=== PATIENT | female | born 1930 | race Caucasian/White ===

== ENCOUNTER → 2016-07-15 | Outpatient (CLI) | payer BC ==
[~2016-07-15] MED LIST: ASPEC325 PO; AZIT-57 PO; BUTA1CAP17 PO; LDDP5 TD; LISI-725 PO; SERT50TA PO
--- NOTE | 2016-07-15 15:37 | DIAGNOSTIC IMAGING REPORT ---
CHEST 2 VIEWS ROUTINE CLINICAL HISTORY: J18.9 cough. Fever. COMPARISON STUDY: 10/25/2015 FINDINGS: The bones soft tissues and hemidiaphragms are normal. The cardiomediastinal silhouette is normal. The lungs are clear. The pulmonary vasculature is normal. IMPRESSION: Negative chest. Electronically signed by: Kimani Harris M.D. 07/15/2016 3:35 PM
== END | disposition home or self-care (01) ==
LOC: C.RAD1850 15:24
PROVIDERS: ATTEND Nurse Practitioner
DX: J18.9 Pneumonia, unspecified organism (principal)

== ENCOUNTER → 2017-06-22 | Outpatient (CLI) | payer BC ==
--- NOTE | 2017-06-23 07:48 | MAMMOGRAPHY REPORT ---
BILATERAL DIGITAL SCREENING MAMMOGRAM WITH CAD: 06/22/2017 CLINICAL HISTORY: Routine screening. Patient has no complaints. TECHNIQUE: Bilateral CC and MLO views were obtained. Current study was also evaluated with a Compute r Aided Detection (CAD) system. COMPARISON: Comparison is made to exams dated: 06/19/2016 mammogram, 05/30/2015 mammogram, 05/29/2014 mammogram, 05/27/2013 mammogram, 05/26/2012 mammogram, and 05/06/2011 mammogram - [facility]. BREAST COMPOSITION: There are scattered areas of fibroglandular density in both breasts. FINDINGS: There are mild vascular calcifications in the breasts. Stable nodularity in the lateral as pect of each breast. No new suspicious mass, architectural distortion or cluster of microcalcificati ons is seen. IMPRESSION: ACR BI-RADS CATEGORY 1: NEGATIVE There is no mammographic evidence of malignancy. A 1 year screening mammogram is recommended. The pa tient will receive written notification of the results. Approximately 10% of breast cancers are not detected with mammography. A negative mammographic report should not delay biopsy if a clinically suggestive mass is present. Sophia Bennett M.D. ay/:06/22/2017 16:14:40 Clay Modeler: Violet ORNELAS(R)(M), [facility] letter sent: Normal 1/2 BI-RADS Code: ACR BI-RADS Category 1: Negative
== END | disposition home or self-care (01) ==
LOC: C.MAMM 13:35
PROVIDERS: ATTEND Family Medicine
DX: Z12.31 Encounter for screening mammogram for malignant neoplasm of breast (principal)

== ENCOUNTER → 2017-11-18 | Outpatient (CLI) | payer BC ==
--- NOTE | 2017-11-18 19:36 | DIAGNOSTIC IMAGING REPORT ---
RIBS BILATERAL WITH PA CHEST CLINICAL HISTORY: 87 years-old Female presenting with MID BACK PAIN, DYSPNEA, fall, left posterior lateral rib bruising, right-sided rib cage pain on inspiration. TECHNIQUE: Frontal and oblique views of the bilateral ribs as well as PA view of the chest were obtained. COMPARISON: 07/15/2016. FINDINGS: Atherosclerosis and mild tortuosity of the thoracic aorta. Cardiac silhouette normal in size. No focal opacity. No large effusion or pneumothorax. Cholecystectomy clips noted. Mild scoliotic curvature of the thoracic spine. Osteopenia may be present. No displaced rib fracture. IMPRESSION: 1. No displaced rib fracture. 2. No acute cardiopulmonary disease. Electronically signed by: Lyle Morris M.D. 11/18/2017 7:35 PM Dictated Date/Time: 11/18/2017 7:32 PM
== END | disposition home or self-care (01) ==
LOC: C.RAD 18:45
PROVIDERS: ATTEND Family Medicine
DX: M54.9 Dorsalgia, unspecified (principal); R06.00 Dyspnea, unspecified

== ENCOUNTER 2018-03-05 15:26 | Emergency (ER) | payer BC ==
[~2018-03-05] VITALS: Ht 152.4 cm; Wt 64.0 kg
[~2018-03-05 15:26] MED LIST changes: -ASPEC325 PO; -AZIT-57 PO; -BUTA1CAP17 PO; +CYAN500T PO; -LDDP5 TD
[2018-03-05 15:48] VITALS: TEMP 36.7; Ht 152.4 cm; Wt 64.0 kg
[2018-03-05] MEDS ORDERED: FENTANYL CITRATE INJ 50 MCG/1 ML 2 ML VIAL IV STA (16:03)
[2018-03-05] MEDS ORDERED: ACETAMINOPHEN IV 100 ML IV STA (16:03)
--- NOTE | 2018-03-05 16:08 | EMERGENCY ROOM VISIT NOTE ---
History Report prepared by Ryan: Samson Camp Under the Supervision of: Dr. Benedicto Flores M.D. First contact with patient: 15:57 Chief Complaint: WRIST PAIN Stated Complaint: FALL/WRIST PAIN History of Present Illness The patient is a 87 year old female who presents to the Emergency Room with complaints of left wrist pain that happened when the patient fell on the concrete just prior to arrival. She states ice helps with the pain and movement makes it worse. She states that she was walking when she tripped and fell with her one arm extended out. She denies hitting her head or being on any blood thinners, however, she could not get up by herself. She states that she ate lunch today at 1200, and that was the last time she ate. Source of History: patient Onset: Just MACHINE TESTER Position: wrist (left) Modifying Factors (Worsening): movement Modifying Factors (Relieving): ice Associated Symptoms: No fevers, No chills, No headache, No chest pain, No SOB, No nausea, No vomiting, No diarrhea Review of Systems See HPI for pertinent positives and negatives. A total of ten systems were reviewed and were otherwise negative. Past Medical & Surgical Medical Problems: (1) Pneumonia (2) Rib fracture (3) Shingles (4) Trigeminal neuralgia Family History Hypertension Social History Smoking Status: Never Smoker Drug Use: none Marital Status: Housing Status: lives with family Occupation Status: retired Current/Historical Medications Scheduled Amlodipine Besylate (Norvasc), 2.5 MG PO DAILY Lamotrigine (Lamotrigine), 25 MG PO BID Lisinopril (Lisinopril), 20 MG PO DAILY Sertraline HCl (Sertraline HCl), 100 MG PO HS Scheduled PRN Naproxen (Aleve), 220 MG PO UD PRN for Pain Allergies Coded Allergies: Carbamazepine (Unverified Allergy, Mild, 07/29/15) Physical Exam Vital Signs Date Time Temp Pulse Resp B/P (MAP) Pulse Ox O2 Delivery O2 Flow Rate FiO2 03/05/18 19:47 84 177/96 92 03/05/18 18:53 92 18 167/105 95 Room Air 03/05/18 17:30 95 18 97 Room Air 03/05/18 15:48 36.7 93 18 186/94 93 Room Air Physical Exam GENERAL: Awake, alert, well-appearing, in no distress HENT: Normocephalic, atraumatic. Oropharynx unremarkable. Mucous membranes are dry. EYES: Normal conjunctiva. Sclera non-icteric. NECK: Supple. No nuchal rigidity. FROM. No JVD. RESPIRATORY: Clear to auscultation. CARDIAC: Regular rate, normal rhythm. Extremities warm and well perfused. Pulses equal. ABDOMEN: Soft, non-distended. No tenderness to palpation. No rebound or guarding. No masses. RECTAL: Deferred. MUSCULOSKELETAL: Chest examination reveals no tenderness. The back is symmetrical on inspection without obvious abnormality. There is no CVA tenderness to palpation. No joint edema. Left wrist deformity, distal PMS intact. Strong radial/ulnar pulses LOWER EXTREMITIES: Calves are equal size bilaterally and non-tender. No edema. No discoloration. minor 1.5cm superficial right anterior knee abrasion. FROM without pain. Hips without ttp b/l. FROM. NEURO: Normal sensorium. No sensory or motor deficits noted. SKIN: No rash or jaundice noted. Medical Decision & Procedures ER Provider Diagnostic Interpretation: Radiology results as stated below per my review and radiologist interpretation: L WRIST MIN 3 VIEWS ROUTINE CLINICAL HISTORY: Left wrist pain status post trauma COMPARISON: None DISCUSSION: There is an acute impaction fracture of the distal radius. There is associated age-indeterminate ulnar styloid fracture. The distal fragment is dorsally displaced x 6 mm. There is 27 degrees dorsal tilt of the radial articular surface. IMPRESSION: 1. Acute distal radial fracture with 27 degrees dorsal tilt of the radial articular surface. The distal fragment is dorsally displaced x 6 mm. Electronically signed by: Booker Hoff M.D. 03/05/2018 5:03 PM Dictated Date/Time: 03/05/2018 5:02 PM L HAND MIN 3 VIEWS ROUTINE CLINICAL HISTORY: Left hand pain status post trauma COMPARISON: None. DISCUSSION: The bones are osteopenic. 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 There is an acute impaction fracture of the distal radius. This results in a dorsal tilt of the right articular surface of 48 degrees. IMPRESSION: 1. Acute fracture the distal radius with 48 degrees of dorsal tilt of the radial articular surface 2. Osteopenia and erosive osteoarthritic changes Electronically signed by: Booker Hoff M.D. 03/05/2018 5:00 PM Dictated Date/Time: 03/05/2018 4:59 PM L FOREARM 2 VIEWS ROUTINE CLINICAL HISTORY: Left forearm pain status post trauma COMPARISON: None. DISCUSSION: There is acute fracture of the distal radius with secondary dorsal tilt of the radial articular surface. There is an age-indeterminate ulnar styloid fracture. There is no dislocation. IMPRESSION: Acute distal radial fracture with dorsal tilt of the radial articular surface Electronically signed by: Booker Hoff M.D. 03/05/2018 5:04 PM Dictated Date/Time: 03/05/2018 5:04 PM Medications Administered Medications (Trade) Dose Ordered Sig/Rut Route Start Time Stop Time Status Last Admin Dose Admin Fentanyl Citrate (Fentanyl Inj) 25 mcg NOW STAT IV 03/05/18 16:03 03/05/18 16:06 DC 03/05/18 16:34 25 MCG Acetaminophen 100 ml @ 400 mls/hr NOW STAT IV 03/05/18 16:03 03/05/18 16:17 DC 03/05/18 16:03 400 MLS/HR ED Course 1600: The patient was evaluated in room B10. A complete history and physical exam was performed. 1720: I spoke with Dr. Sandoval - orthopedics about the patients case Medical Decision I reviewed the patient's past medical history, medications, and the nursing notes as described above. Differential diagnosis: Etiologies such as fracture, dislocation, neurovascular compromise, compartment syndrome, soft tissue injury, as well as others were entertained. The patient is a pleasant 87 y/o woman with a pmhx of htn who presents to the emergency department with left wrist pain and deformity after falling on outstretched hand from mechanical fall per HPI. On arrival the patient is uncomfortable but in NAD, AFVSS. Left wrist demonstrates gross deformity. Distal PMS intact. Strong radial/ulnar pulses. Elbow without ttp. FROM. Plain films demonstrate acute distal radial fracture with 27 degrees dorsal tilt of the radial articular surface with distal fragment dorsally displaced x 6 mm. Case was d/with Dr. Sandoval, orthopedics, with whom the patient has followed with in the past. Dr. Sandoval evaluated and reduced/splinted the patient in the ED. Plan for sling and f/u next week. Patient does not want any narcotics at this time. Minor right knee abrasion cleaned and dressed. Findings and plan for follow-up reviewed with patient. Patient agreeable and d/c'd per discharge instructions. Medication Reconcilliation Current Medication List: was personally reviewed by me Blood Pressure Screening Patient's blood pressure: Elevated blood pressure Blood pressure disposition: Referred to PCP Consults Time Called: 1718 Consulting Physician: Dr. Sandoval - Orthopedics Returned Call: 1720 I discussed the patient with Dr. Jaime Vee who will evaluate the patient for further treatment. Impression Primary Impression: Distal radius fracture, left Scribe Attestation The scribe's documentation has been prepared under my direction and personally reviewed by me in its entirety. I confirm that the note above accurately reflects all work, treatment, procedures, and medical decision making performed by me. Departure Information Dispostion Home / Self-Care Referrals Won Bower D.O. (PCP) Trino Sandoval M.D. Patient Instructions Distal Radius Fx, ED Fx Forearm Radius Ulna Redu Requ, My [facility] Additional Instructions Please follow up with your orthopedic surgeon, Dr. Sandoval, next week for re- evaluation. You were found to have a distal radius fracture. Acetaminophen for pain and fevers as needed. Keep elevated and apply ice to minimize pain and swelling. Sling for comfort. Return to the emergency department for worsening symptoms as described in the accompanying instructions.
[2018-03-05] MEDS ORDERED: ZLF/100 PO (16:44)
[2018-03-05] MEDS ORDERED: AMLO2.5T PO (16:44)
[2018-03-05] MEDS ORDERED: LISI-726 PO (16:44)
[2018-03-05] MEDS ORDERED: NAPR1TAB9 PO (16:44)
[2018-03-05] MEDS ORDERED: LMC25 PO (16:44)
--- NOTE | 2018-03-05 17:01 | DIAGNOSTIC IMAGING REPORT ---
L HAND MIN 3 VIEWS ROUTINE CLINICAL HISTORY: Left hand pain status post trauma COMPARISON: None. DISCUSSION: The bones are osteopenic. 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 There is an acute impaction fracture of the distal radius. This results in a dorsal tilt of the right articular surface of 48 degrees. IMPRESSION: 1. Acute fracture the distal radius with 48 degrees of dorsal tilt of the radial articular surface 2. Osteopenia and erosive osteoarthritic changes Electronically signed by: Booker Hoff M.D. 03/05/2018 5:00 PM Dictated Date/Time: 03/05/2018 4:59 PM
--- NOTE | 2018-03-05 17:05 | DIAGNOSTIC IMAGING REPORT ---
L WRIST MIN 3 VIEWS ROUTINE CLINICAL HISTORY: Left wrist pain status post trauma COMPARISON: None DISCUSSION: There is an acute impaction fracture of the distal radius. There is associated age-indeterminate ulnar styloid fracture. The distal fragment is dorsally displaced x 6 mm. There is 27 degrees dorsal tilt of the radial articular surface. IMPRESSION: 1. Acute distal radial fracture with 27 degrees dorsal tilt of the radial articular surface. The distal fragment is dorsally displaced x 6 mm. Electronically signed by: Booker Hoff M.D. 03/05/2018 5:03 PM Dictated Date/Time: 03/05/2018 5:02 PM
--- NOTE | 2018-03-05 17:05 | DIAGNOSTIC IMAGING REPORT ---
L FOREARM 2 VIEWS ROUTINE CLINICAL HISTORY: Left forearm pain status post trauma COMPARISON: None. DISCUSSION: There is acute fracture of the distal radius with secondary dorsal tilt of the radial articular surface. There is an age-indeterminate ulnar styloid fracture. There is no dislocation. IMPRESSION: Acute distal radial fracture with dorsal tilt of the radial articular surface Electronically signed by: Booker Hoff M.D. 03/05/2018 5:04 PM Dictated Date/Time: 03/05/2018 5:04 PM
[2018-03-05] MEDS ORDERED: LIDOCAINE 1% BUFFERED INJ 20 ML VIAL ONE (17:27)
[2018-03-05] MEDS ORDERED: BUPIVACAINE 0.25% 30 ML VIAL ONE (17:27)
--- NOTE | 2018-03-05 18:58 | DIAGNOSTIC IMAGING REPORT ---
L WRIST MIN 3 VIEWS ROUTINE HISTORY: 87 years-old Female post reduction status post reduction of distal radial fracture COMPARISON: Left wrist radiographs 03/05/2018 at 4:10 PM TECHNIQUE: 3 views of the left breast FINDINGS: Fine bony detail is obscured secondary to overlying casting material. There is improved alignment of the acute comminuted intra-articular distal radial fracture status post reduction and casting. Minimal persistent lateral displacement. Acute nondisplaced fracture of the distal ulna redemonstrated. IMPRESSION: Improved alignment of the distal radial fracture status post casting and reduction. The above report was generated using voice recognition software. It may contain grammatical, syntax or spelling errors. Electronically signed by: Mono Wong M.D. 03/05/2018 6:57 PM Dictated Date/Time: 03/05/2018 6:55 PM
[2018-03-05 19:47] VITALS: BP 177/96; PULSE 84; O2SAT 92
--- NOTE | 2018-03-05 22:51 | ORTHOPEDIC CONSULTATION ---
DATE OF CONSULTATION: 03/05/2018 CHIEF COMPLAINT: Left wrist injury. HISTORY OF PRESENT ILLNESS: The patient is an 87-year-old right hand dominant female who has been a patient in our practice for some time, who sustained an injury to her left wrist earlier today. She is going out to retrieve the mail when she stumbled over something and landed on an outstretched wrist. She also skinned her right knee. There is no head injury, no loss of consciousness, and no other injuries. She was taken to the Emergency Room for x-rays of the fracture and we were consulted for evaluation. Once again, no other injuries. PAST MEDICAL HISTORY: Past medical history is significant for; 1. Right wrist fracture. 2. Pneumonia. 3. Rib fractures. 4. Shingles. 5. Trigeminal neuralgia. Remainder of the past medical history is as per the ER H and P. PHYSICAL EXAMINATION AND OBJECTIVE: VITAL SIGNS: Temperature is 36.7. Vital signs stable. MUSCULOSKELETAL: General musculoskeletal exam reveals full and painless range of motion of her cervical, thoracic, and lumbar spine. She has painless range of motion of both shoulders, both elbows, right wrist and hand, both hips, both knees and both ankles and legs. Examination of the left wrist reveals no obvious deformity. She has got a small abrasion over her hypothenar musculature. She got a dinner fork deformity to her wrist. She can slightly flex and extend her fingers within the limits of pain and she got painless elbow motion. Examination of the right knee reveals about a 2.5-3 cm wound over the anterior aspect of the right knee that goes into the subcutaneous tissues, but superficial to the bursa. Does not enter the knee joint. She can do a straight leg raise. There is no knee effusion. It looks relatively clean. X-RAYS: X-rays of the left wrist reviewed. It shows comminuted intraarticular displaced distal radius fracture with dorsal tilt and shortening. ASSESSMENT: An 87-year-old right hand dominant female status post a fall with: 1. Left comminuted intraarticular distal radius fracture. 2. Right knee abrasion relatively clean and superficial. There are no signs of entering the knee joint or the bursa. PLAN: We are going to do a hematoma block and a closed reduction of the left wrist fracture and put in a sugar tong splint. I will need to see her back in a week. I inspected the right knee; it can be cleaned up by the ER staff and routine wound care instructions will be provided. She can weightbear as tolerated on that. PROCEDURE: The patient's left wrist was prepped with alcohol. I did a hematoma block with a total of 12 mL of a 50:50 combination of 0.5% Marcaine and 1% lidocaine. The patient was then placed in 15 pounds of finger trap traction. Closed reduction was performed. A sugar tong splint was applied and molded to the forearm. Post-reduction films reveal near-anatomic alignment. The patient was placed in the sling. She was then instructed by the ER staff how to take care of the right knee as well as the left arm and prescriptions were written by the ER staff. I will see her back in a week. The patient tolerated the procedure well with no complications. JEAN
== END 2018-03-05 19:48 | disposition home or self-care (01) ==
LOC: EDBD 15:26 → C.EDB 15:26
DX: S52.572A Other intraarticular fracture of lower end of left radius, initial encounter for closed fracture (principal); S52.612A Displaced fracture of left ulna styloid process, initial encounter for closed fracture; S80.211A Abrasion, right knee, initial encounter; W18.09XA Striking against other object with subsequent fall, initial encounter; Z87.01 Personal history of pneumonia (recurrent); Z82.49 Family history of ischemic heart disease and other diseases of the circulatory system; Z79.899 Other long term (current) drug therapy; Z88.8 Allergy status to other drugs, medicaments and biological substances